=== PATIENT | male | born 1970 | race Caucasian/White ===

== ENCOUNTER 2018-12-23 14:46 | Observation (INO) | payer OTHER, BC ==
[~2018-12-23] VITALS: Ht 185.4 cm; Wt 151.0 kg
--- NOTE | 2018-12-23 15:44 | STROKE ---
Date/Time of Note Date/Time of Note DATE: 12/23/18 TIME: 15:43 Patient Information General Patient location: emergency Arrival Date Age 48 Gender male Weight 151 kg POC Glucose Glucose Result Bedside Glucose - 72 Hours Test 12/23/18 14:57 Bedside Glucose 220 mg/dL (70-220) Vital Signs Vital Signs Vital Signs Date Temp Pulse Resp B/P (MAP) Pulse Ox O2 O2 Flow FiO2 Time Delivery Rate 12/23/18 111 22 170/110 98 Room Air 15:25 (130) 12/23/18 98.6 14:53 Patient History Current Medications Allergies: Coded Allergies: marijuana (Verified Allergy, Severe, 12/23/18) azithromycin (Verified Allergy, Intermediate, 12/23/18) History & Physical History of Present Illness 48 M PMH DM, obesity, SHWETA LKW 0800 PST with right face numbness and right hand weakness as well as some blurred vision. No focal deficits on examination other than right face numbness. Patient reports some right eye vision abnormality and abnormal sensation around the upper right face. No tearing or redness of right eye. No nausea/vomiting. NIH Stroke Scale NIH Stroke Scale [id number] Total Score: [id number] Date/Time Recorded DATE: 12/23/18 TIME: 15:43 Submitted By Gorge Zepeda t-PA Imaging Review Date/Time Imaging Reviewed DATE: 12/23/18 TIME: 15:43 t-PA Administration Weight 151 kg Recommedation submitted by Gorge Zepeda Recommendations Recommendation 48 M with right headache focused in retroorbital region, vision blurring. Differential includes paroxysmal hemicrania, complex migraine, strokeother. Not tPA candidate as not in tPA window and NIHSS 0. No LVO suspected. - MRI/A Head w/ w/o contrast would be next step in work-up - Further plan per local Neurology team based on MRI results GORGE ZEPEDA MD Dec 23, 2018 15:44
[2018-12-23] MEDS ORDERED: IOHEXOL 100 ML ONE (16:16)
[2018-12-23] MEDS ORDERED: SOD CHLORIDE 0.9% 100 ML ONE (16:16)
[2018-12-23] MEDS ORDERED: ACETAMINOPHEN 325 MG TAB PO PRN (16:30)
[2018-12-23] MEDS ORDERED: ONDANSETRON 4 MG INJ IV PRN ×2 (16:30→18:00)
--- NOTE | 2018-12-23 16:53 | ERD ---
ER Documentation Chief Complaint Chief Complaint R facial tingling/numbness X 3 hrs, Hx HTN, DM HPI This is a 48-year-old male with a known history of sleep apnea, hypertension, insulin-dependent diabetes mellitus who presents to the emergency department complaining of right facial tingling and numbness. He stated this occurred 3 hours prior to arrival. He had a unilateral right-sided headache but stated this was not the worst headache of his life. He has not had any fever shaking or chills. He denies any neck pain. He also complained of blurry vision of his right eye. He said he had difficulty closing his left eye. He states his symptoms have not improved nor have they worsened. 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 He denies any chest pain. No shortness of breath at rest or exertion. ROS All systems reviewed and are negative except as per history of present illness. Allergies Allergies: Coded Allergies: marijuana (Verified Allergy, Severe, 12/23/18) azithromycin (Verified Allergy, Intermediate, 12/23/18) PMhx/Soc Medical and Surgical Hx: pt denies Surgical Hx History of Surgery: No Anesthesia Reaction: No Hx Neurological Disorder: No Hx Respiratory Disorders: No Hx Cardiac Disorders: Yes (HTN) Hx Psychiatric Problems: No Hx Miscellaneous Medical Probl: Yes (SHWETA, DM, HLD, Gout) Hx Alcohol Use: No Hx Substance Use: No Hx Tobacco Use: No Smoking Status: Former smoker Physical Exam Vitals Vital Signs Date Temp Pulse Resp B/P (MAP) Pulse Ox O2 O2 Flow FiO2 Time Delivery Rate 12/23/18 98.2 88 18 146/98 98 Room Air 16:41 (114) 12/23/18 111 22 170/110 98 Room Air 15:25 (130) 12/23/18 98.6 108 18 185/117 100 14:53 (139) Physical Exam Constitutional:Well-developed. Well-nourished. HEENT:Normocephalic. Atraumatic.Pupils were equal round reactive to light. Moist mucous membranes.No tonsillar exudates. Neck: No nuchal rigidity. No lymphadenopathy. No posterior cervical spine tender ness or step-offs. Respiratory: Not using accessory muscles of respiration.Lungs were clear to auscultation bilaterally. No rhonchi. No rales. No wheezing. Cardiovascular: Regular rate regular rhythm.No murmurs. No rubs were appreciated.S1, S2 normal. Distal pulses are palpable 2+ bilaterally. GI: Abdomen was soft. Nontender. Non Distended. No pulsatile abdominal masses or bruits. No rebound. No guarding. Bowel sounds were present and normal. Muscle skeletal: Full range of motion of both the upper and lower extremities bilaterally.Normal muscle tone.No assymetrical calf tenderness or swelling. Skin: No petechia, no purpura. No lesions on the palms or the soles of the feet. No maculopapular rash. NEURO: Patient was alert, awake, orientated x3.No pronator drift. Romberg sign negative. NIH stroke scale 0, gait observed and normal with no ataxia.Speech had regular rate and rhythm. Decreased sensation to sharp and dull on the right cheek and forehead compared to the left. No facial droop. No flattened nasolabial fold. Result Diagram: 12/23/18 1520 12/23/18 1520 Results 24 hrs Laboratory Tests Test 12/23/18 14:57 12/23/18 15:20 Bedside Glucose 220 mg/dL White Blood Count 5.7 10^3/ul Red Blood Count 5.23 10^6/ul Hemoglobin 15.5 g/dl Hematocrit 45.9 % Mean Corpuscular Volume 87.8 fl Mean Corpuscular Hemoglobin 29.6 pg Mean Corpuscular Hemoglobin Concent 33.8 g/dl Red Cell Distribution Width 11.9 % Platelet Count 246 10^3/UL Mean Platelet Volume 10.8 fl Immature Granulocytes % 0.300 % Neutrophils % 59.9 % Lymphocytes % 27.1 % Monocytes % 7.3 % Eosinophils % 4.9 % Basophils % 0.5 % Nucleated Red Blood Cells % 0.0 /100WBC Immature Granulocytes # 0.020 10^3/ul Neutrophils # 3.4 10^3/ul Lymphocytes # 1.6 10^3/ul Monocytes # 0.4 10^3/ul Eosinophils # 0.3 10^3/ul Basophils # 0.0 10^3/ul Nucleated Red Blood Cells # 0.0 10^3/ul Prothrombin Time 12.5 Sec Prothrombin Time Ratio 1.0 INR International Normalized Ratio 0.92 Activated Partial Thromboplast Time 21.8 Sec Sodium Level 141 mmol/L Potassium Level 4.1 mmol/L Chloride Level 103 mmol/L Carbon Dioxide Level 25 mmol/L Anion Gap 13 Blood Urea Nitrogen 17 mg/dl Creatinine 0.74 mg/dl Est Glomerular Filtrat Rate mL/min > 60 mL/min Glucose Level 206 mg/dl Hemoglobin A1c 10.0 % Calcium Level 10.1 mg/dl Total Bilirubin 0.2 mg/dl Direct Bilirubin 0.00 mg/dl Indirect Bilirubin 0.2 mg/dl Aspartate Amino Transf (AST/SGOT) 28 IU/L Alanine Aminotransferase (ALT/SGPT) 29 IU/L Alkaline Phosphatase 80 IU/L Creatine Kinase 49 IU/L Creatine Kinase Index 0.9 Creatinine Kinase MB (Mass) 0.44 ng/ml Troponin I < 0.012 ng/ml Total Protein 7.4 g/dl Albumin 4.3 g/dl Globulin 3.10 g/dl Albumin/Globulin Ratio 1.38 Triglycerides Level 397 mg/dl Cholesterol Level 198 mg/dl LDL Cholesterol, Calculated 84 mg/dl HDL Cholesterol 35 mg/dl Cholesterol/HDL Ratio 5.6 RATIO Current Medications Medications Dose Sig/Yuly Start Time Status Last (Trade) Ordered Route PRN Stop Time Admin Dose Reason Admin IV Flush 10 ml STK-MED 12/23/18 DC (NS 10 ml) ONCE .ROUTE 16:16 12/23/18 16:17 Sodium 100 ml @ ud STK-MED 12/23/18 DC Chloride ONCE .ROUTE 16:16 12/23/18 16:17 Iohexol 100 ml @ ud STK-MED 12/23/18 DC ONCE .ROUTE 16:16 12/23/18 16:17 Ondansetron 4 mg ER BRIDGE 12/23/18 HCl (Zofran PRN IV 16:30 12/24/18 Inj) NAUSEA/VOMITI 16:29 NG 650 mg ER BRIDGE 12/23/18 Acetaminophen PRN PO 16:30 12/24/18 (Tylenol .MILD PAIN 16:29 Tab) 1-3 OR TEMP Procedures/MDM This is a 48-year-old male that presented to the emergency department with strokelike symptoms. Code stroke was immediately called after I evaluated the patient. The patient placed on monitor car operator continuous pulse oximetry and IV access was established by nursing staff. 12 Lead EKG tracing ordered and reviewed by myself showed: Normal sinus rhythm of 98 bpm and no arrhythmia. AR interval normal. QRS duration normal. No ST segment elevation No ST segment depression. No changes consistent with acute ischemia. CT scan of the head was ordered and reviewed by myself the radiologist. I spoke with Dr. Cowart the radiologist to indicate there is no intracerebral hemorrhage mass-effect or midline shift. Dr. Santillan was the telemetry neurologist who saw the patient and after his evaluation did not feel the patient was a TPA candidate. He did suggest an MRI of the brain. A CTA of the head and neck was performed and reviewed by the radiologist. Did not appear to be any signs of an acute ischemic cerebrovascular accident but the patient will be admitted to the hospitalist on day to undergo an MRI and further evaluation. He was given aspirin. Departure Diagnosis: Primary Impression: Right facial numbness Condition: Serious TIFFANY CORREA MD Dec 23, 2018 16:53
[2018-12-23] MEDS ORDERED: ASPIRIN 81 MG TAB PO ONE (17:00)
[2018-12-23 17:34] VITALS: Ht 185.4 cm; Wt 151.0 kg
[2018-12-23 17:45] VITALS: BP 155/91; PULSE 86; RESP 20
[2018-12-23 17:57] VITALS: PULSE 90
[2018-12-23] MEDS ORDERED: NACL 0.9% 3 ML SYG IV SCH (18:00)
[2018-12-23] MEDS ORDERED: HYDROCODONE/APAP (5/325) TAB PO PRN (18:00)
[2018-12-23] MEDS ORDERED: ZOLPIDEM 5 MG TAB PO PRN (18:00)
[2018-12-23] MEDS ORDERED: morphine 2 MG INJ IV PRN (18:00)
[2018-12-23] MEDS ORDERED: DOCUSATE SODIUM 100 MG CAP PO PRN (18:00)
[2018-12-23] MEDS ORDERED: DEXTROSE 50% 50 ML SYRINGE IV PRN ×2 (19:30)
[2018-12-23] MEDS ORDERED: GLUCOSE GEL 15 GRAM TUBE BUCCAL PRN (19:30)
[2018-12-23] MEDS ORDERED: GLUCOSE GEL 15 GRAM TUBE PO PRN ×2 (19:30)
[2018-12-23] MEDS ORDERED: GLUCAGON 1 MG INJ IM PRN (19:30)
--- NOTE | 2018-12-23 19:32 | HP ---
Date/Time of Note Date/Time of Note DATE: 12/23/18 TIME: 19:20 Assessment/Plan VTE Prophylaxis Pharmacological prophylaxis: LMWH Lines/Catheters IV [facility]from [facility] Saline Lock Urinary Cath still in place: No Assessment/Plan Hospital Course 1. Right facial paresthesia with blurry vision in the right eye as well as diff iculty in closing the eye CT brain and CTA brain and neck showed no significant findings Patient has no evidence of ptosis or cranial nerve III palsy, no nystagmus noted Follow-up on MRI brain Neurology consultation with Dr. Taylor obtained Aspirin and statin started 2. 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 Hypertension Home medicine not known but start lisinopril 4. Dyslipidemia Statin 5. Morbid obesity Lifestyle changes to be advised Prophylaxis: Lovenox Result Diagram: 12/23/18 1520 12/23/18 1520 Results 24hrs Laboratory Tests Test 12/23/18 14:57 12/23/18 15:20 Bedside Glucose 220 White Blood Count 5.7 Red Blood Count 5.23 Hemoglobin 15.5 Hematocrit 45.9 Mean Corpuscular Volume 87.8 Mean Corpuscular Hemoglobin 29.6 Mean Corpuscular Hemoglobin Concent 33.8 Red Cell Distribution Width 11.9 Platelet Count 246 Mean Platelet Volume 10.8 H Immature Granulocytes % 0.300 Neutrophils % 59.9 Lymphocytes % 27.1 Monocytes % 7.3 Eosinophils % 4.9 Basophils % 0.5 Nucleated Red Blood Cells % 0.0 Immature Granulocytes # 0.020 Neutrophils # 3.4 Lymphocytes # 1.6 Monocytes # 0.4 Eosinophils # 0.3 Basophils # 0.0 Nucleated Red Blood Cells # 0.0 Prothrombin Time 12.5 Prothrombin Time Ratio 1.0 INR International Normalized Ratio 0.92 Activated Partial Thromboplast Time 21.8 L Sodium Level 141 Potassium Level 4.1 Chloride Level 103 Carbon Dioxide Level 25 Anion Gap 13 Blood Urea Nitrogen 17 Creatinine 0.74 Est Glomerular Filtrat Rate mL/min > 60 Glucose Level 206 Hemoglobin A1c 10.0 H Calcium Level 10.1 Total Bilirubin 0.2 Direct Bilirubin 0.00 Indirect Bilirubin 0.2 Aspartate Amino Transf (AST/SGOT) 28 Alanine Aminotransferase (ALT/SGPT) 29 Alkaline Phosphatase 80 Creatine Kinase 49 Creatine Kinase Index 0.9 Creatinine Kinase MB (Mass) 0.44 Troponin I < 0.012 Total Protein 7.4 Albumin 4.3 Globulin 3.10 Albumin/Globulin Ratio 1.38 Triglycerides Level 397 H Cholesterol Level 198 LDL Cholesterol, Calculated 84 HDL Cholesterol 35 Cholesterol/HDL Ratio 5.6 HPI/ROS Admit Date/Time Admit Date/Time Dec 23, 2018 at 16:28 Hx of Present Illness Patient is a 48-year-old male with history of super morbid obesity with sleep apnea, hypertension, diabetes, dyslipidemia. Patient presents with several days of right facial tingling and numbness with difficulty closing his right eye and does report blurry vision in that eye. Patient denies any prior such symptoms, patient denies any double vision or any visual field defects. Patient denies worsening of the symptoms over the past several days. Patient denies any focal weakness, patient denies any nausea, vomiting, fever or chills. Patient denies any significant headache. ROS Constitutional: no complaints, improved Eyes: no complaints ENT: no complaints Respiratory: no complaints Cardiovascular: no complaints Gastrointestinal: no complaints Genitourinary: no complaints Musculoskeletal: no complaints Skin: no complaints Neurologic: other (Numbness and tingling in the right face) Endocrine: no complaints Lymphatic: no complaints Psychological: no complaints, nl mood/affect Immunologic: no complaints PMH/Family/Social Past Medical History As per [facility] Medications Current Medications IV Flush (NS 3 ml) 3 ml PER PROTOCOL IV ; Start 12/23/18 at 18:00 Ondansetron HCl (Zofran Inj) 4 mg Q6H PRN IV NAUSEA/VOMITING; Start 12/23/18 at 18:00 Acetaminophen (Tylenol Tab) 650 mg Q6H PRN PO .PAIN 1-3 OR TEMP; Start 12/23/18 at 18:00 Acetaminophen/ Hydrocodone Bitart ([place] (5/325)) 1 tab Q6H PRN PO .MOD PAIN 4- 6; Start 12/23/18 at 18:00 Morphine Sulfate (morphine) 2 mg Q4H PRN IV .SEVERE PAIN 7-10; Start 12/23/18 at 18:00 Docusate Sodium (Colace) 100 mg Q12H PRN PO .CONSTIPATION; Start 12/23/18 at 18:00 Zolpidem Tartrate (Ambien) 5 mg QHS PRN PO .INSOMNIA; Start 12/23/18 at 18:00 Enoxaparin Sodium (Lovenox) 40 mg DAILY SC ; Start 12/24/18 at 09:00 Insulin Aspart (Novolog Insulin Pen) NOVOLOG *MILD* ALGORITHM WITH MEALS BEDTIME SC ; Start 12/23/18 at 21:00 Miscellaneous Information 1 ea NOTE XX ; Start 12/23/18 at 19:30 Glucose (Glutose) 15 gm Q15M PRN PO DECREASED GLUCOSE; Start 12/23/18 at 19:30 Glucose (Glutose) 22.5 gm Q15M PRN PO DECREASED GLUCOSE; Start 12/23/18 at 19:30 Dextrose (D50w Syringe) 25 ml Q15M PRN IV DECREASED GLUCOSE; Start 12/23/18 at 19:30 Dextrose (D50w Syringe) 50 ml Q15M PRN IV DECREASED GLUCOSE; Start 12/23/18 at 19:30 Glucagon (Glucagen) 1 mg Q15M PRN IM DECREASED GLUCOSE; Start 12/23/18 at 19:30 Glucose (Glutose) 15 gm Q15M PRN BUCCAL DECREASED GLUCOSE; Start 12/23/18 at 19:30 Coded Allergies: marijuana (Verified Allergy, Severe, 12/23/18) azithromycin (Verified Allergy, Intermediate, 12/23/18) Past Surgical History Past Surgical Hx: no surgical history Family History Significant Family History: no pertinent family hx Social History Alcohol Use: rarely Smoking Status: Former smoker Drug Use: none Exam/Review of Systems Vital Signs Vitals Vital Signs Date Temp Pulse Resp B/P (MAP) Pulse Ox O2 O2 Flow FiO2 Time Delivery Rate 12/23/18 90 17:57 12/23/18 98.4 20 155/91 92 17:45 (112) 12/23/18 Room Air 16:41 Exam Constitutional: alert, oriented Respiratory: clear to auscultation Cardiovascular: regular rate and rhythm Gastrointestinal: soft; No distended Musculoskeletal: nl extremities to inspection Neurological: AUTOMATIC LOG CUT OFF SAWYER II-XII intact, nl mental status, nl strength; No focal weakness TIFFANIE WADE Dec 23, 2018 19:30
[2018-12-23 20:00] VITALS: BP 130/68; PULSE 102; PULSE 94; RESP 19
[2018-12-23] MEDS ORDERED: INSULIN ASPART [NOVOLOG] 3 ML PEN SC SCH (21:00)
[2018-12-23] MEDS: INSULIN ASPART [NOVOLOG] 3 ML PEN SC SCH (21:00)
[2018-12-23] MEDS: ATORVASTATIN 40 MG TAB PO SCH (21:04)
[2018-12-23] MEDS: ACETAMINOPHEN 325 MG TAB PO PRN (21:06)
[2018-12-23] MEDS: INSULIN GLARGINE [LANTus] (100 UNITS/ML) SYG SC SCH (21:29)
[2018-12-24] VITALS (11 sets, daily range): BP systolic 115–146; BP diastolic 67–90; PULSE 79–131; RESP 18–20
[2018-12-24] MEDS: ACCU-CHEK XX SCH (01:42)
[2018-12-24] MEDS: INSULIN ASPART [NOVOLOG] 3 ML PEN SC SCH ×7 (07:15→20:29)
[2018-12-24] MEDS: ASPIRIN (EC) 81 MG TAB PO SCH (08:26)
[2018-12-24] MEDS: LISINOPRIL 10 MG TAB PO SCH (08:27)
[2018-12-24] MEDS: ENOXAPARIN 40 MG/0.4 ML SYG SC SCH (08:31)
--- NOTE | 2018-12-24 13:25 | PN ---
Date/Time of Note Date/Time of Note DATE: 12/24/18 TIME: 13:23 Assessment/Plan VTE Prophylaxis Risk score (from Ns)>0 risk: 2 SCD applied (from Nsg): Yes Pharmacological prophylaxis: heparin Lines/Catheters IV Catheter Type (from Nrs): Peripheral IV Urinary Cath still in place: No Assessment/Plan Hospital Course 48 yo male with h/o obesity, DMII, hypertension presents with facial numbness on R and facial droop on L concerning for CVA - MRI pending - CT/CTA without acute pathology DMII: - Basal/bolus insulin HDL: - Statin Hypertension: - Controlled Dc following workup Result Diagram: 12/24/18 0525 12/24/18 0525 Results 24hrs Laboratory Tests Test 12/23/18 14:57 12/23/18 15:20 12/23/18 21:25 12/24/18 05:25 Bedside Glucose 220 178 White Blood Count 5.7 6.8 Red Blood Count 5.23 4.96 Hemoglobin 15.5 14.7 Hematocrit 45.9 44.7 Mean Corpuscular Volume 87.8 90.1 Mean Corpuscular 29.6 29.6 Hemoglobin Mean Corpuscular 33.8 32.9 Hemoglobin Concent Red Cell Distribution 11.9 12.2 Width Platelet Count 246 253 Mean Platelet Volume 10.8 H 11.6 H Immature Granulocytes % 0.300 0.300 Neutrophils % 59.9 60.4 Lymphocytes % 27.1 25.3 Monocytes % 7.3 8.6 Eosinophils % 4.9 4.8 Basophils % 0.5 0.6 Nucleated Red Blood 0.0 0.0 Cells % Immature Granulocytes # 0.020 0.020 Neutrophils # 3.4 4.1 Lymphocytes # 1.6 1.7 Monocytes # 0.4 0.6 Eosinophils # 0.3 0.3 Basophils # 0.0 0.0 Nucleated Red Blood 0.0 0.0 Cells # Prothrombin Time 12.5 Prothrombin Time Ratio 1.0 INR International 0.92 Normalized Ratio Activated 21.8 L Partial Thromboplast Time Sodium Level 141 142 Potassium Level 4.1 4.0 Chloride Level 103 101 Carbon Dioxide Level 25 27 Anion Gap 13 14 H Blood Urea Nitrogen 17 19 Creatinine 0.74 0.93 Est Glomerular Filtrat > 60 > 60 Rate mL/min Glucose Level 206 167 Hemoglobin A1c 10.0 H 10.1 H Calcium Level 10.1 9.5 Total Bilirubin 0.2 Direct Bilirubin 0.00 Indirect Bilirubin 0.2 Aspartate Amino 28 Transf (AST/SGOT) Alanine 29 Aminotransferase (ALT/SG PT) Alkaline Phosphatase 80 Creatine Kinase 49 Creatine Kinase Index 0.9 Creatinine Kinase MB 0.44 (Mass) Troponin I < 0.012 Total Protein 7.4 Albumin 4.3 Globulin 3.10 Albumin/Globulin Ratio 1.38 Triglycerides Level 397 H 366 H Cholesterol Level 198 188 LDL Cholesterol, 84 85 Calculated HDL Cholesterol 35 30 Cholesterol/HDL Ratio 5.6 6.2 Phosphorus Level 5.1 H Magnesium Level 2.1 Test 12/24/18 07:11 12/24/18 11:38 Bedside Glucose 194 157 Subjective 24 Hr Interval Summary Free Text/Dictation Continued numbness of R face L facial droop, forehead paralysis, can't close eye on L 5/5 strength in b/l UEs and b/l LEs RRR CTAB Obese Soft nt nd Exam/Review of Systems Exam Vitals Vital Signs Date Temp Pulse Resp B/P (MAP) Pulse Ox O2 O2 Flow FiO2 Time Delivery Rate 12/24/18 86 12:01 12/24/18 99.3 18 120/77 93 Room Air 11:28 (91) Intake and Output 12/23/18 12/23/18 12/24/18 1515:00 23:00 07:00 IntakeIntake Total 500 ml BalanceBalance 500 ml Results Results 24hrs Laboratory Tests Test 12/23/18 14:57 12/23/18 15:20 12/23/18 21:25 12/24/18 05:25 Bedside Glucose 220 178 White Blood Count 5.7 6.8 Red Blood Count 5.23 4.96 Hemoglobin 15.5 14.7 Hematocrit 45.9 44.7 Mean Corpuscular Volume 87.8 90.1 Mean Corpuscular 29.6 29.6 Hemoglobin Mean Corpuscular 33.8 32.9 Hemoglobin Concent Red Cell Distribution 11.9 12.2 Width Platelet Count 246 253 Mean Platelet Volume 10.8 H 11.6 H Immature Granulocytes % 0.300 0.300 Neutrophils % 59.9 60.4 Lymphocytes % 27.1 25.3 Monocytes % 7.3 8.6 Eosinophils % 4.9 4.8 Basophils % 0.5 0.6 Nucleated Red Blood 0.0 0.0 Cells % Immature Granulocytes # 0.020 0.020 Neutrophils # 3.4 4.1 Lymphocytes # 1.6 1.7 Monocytes # 0.4 0.6 Eosinophils # 0.3 0.3 Basophils # 0.0 0.0 Nucleated Red Blood 0.0 0.0 Cells # Prothrombin Time 12.5 Prothrombin Time Ratio 1.0 INR International 0.92 Normalized Ratio Activated 21.8 L Partial Thromboplast Time Sodium Level 141 142 Potassium Level 4.1 4.0 Chloride Level 103 101 Carbon Dioxide Level 25 27 Anion Gap 13 14 H Blood Urea Nitrogen 17 19 Creatinine 0.74 0.93 Est Glomerular Filtrat > 60 > 60 Rate mL/min Glucose Level 206 167 Hemoglobin A1c 10.0 H 10.1 H Calcium Level 10.1 9.5 Total Bilirubin 0.2 Direct Bilirubin 0.00 Indirect Bilirubin 0.2 Aspartate Amino 28 Transf (AST/SGOT) Alanine 29 Aminotransferase (ALT/SG PT) Alkaline Phosphatase 80 Creatine Kinase 49 Creatine Kinase Index 0.9 Creatinine Kinase MB 0.44 (Mass) Troponin I < 0.012 Total Protein 7.4 Albumin 4.3 Globulin 3.10 Albumin/Globulin Ratio 1.38 Triglycerides Level 397 H 366 H Cholesterol Level 198 188 LDL Cholesterol, 84 85 Calculated HDL Cholesterol 35 30 Cholesterol/HDL Ratio 5.6 6.2 Phosphorus Level 5.1 H Magnesium Level 2.1 Test 12/24/18 07:11 12/24/18 11:38 Bedside Glucose 194 157 Medications Medication Current Medications IV Flush (NS 3 ml) 3 ml PER PROTOCOL IV ; Start 12/23/18 at 18:00 Ondansetron HCl (Zofran Inj) 4 mg Q6H PRN IV NAUSEA/VOMITING; Start 12/23/18 at 18:00 Acetaminophen (Tylenol Tab) 650 mg Q6H PRN PO .PAIN 1-3 OR TEMP Last administered on 12/23/18at 21:06; Admin Dose 650 MG; Start 12/23/18 at 18:00 Acetaminophen/ Hydrocodone Bitart ([place] (5/325)) 1 tab Q6H PRN PO .MOD PAIN 4- 6; Start 12/23/18 at 18:00 Morphine Sulfate (morphine) 2 mg Q4H PRN IV .SEVERE PAIN 7-10; Start 12/23/18 at 18:00 Docusate Sodium (Colace) 100 mg Q12H PRN PO .CONSTIPATION; Start 12/23/18 at 18:00 Zolpidem Tartrate (Ambien) 5 mg QHS PRN PO .INSOMNIA; Start 12/23/18 at 18:00 Enoxaparin Sodium (Lovenox) 40 mg DAILY SC Last administered on 12/24/18 08:31; Admin Dose 40 MG; Start 12/24/18 at 09:00 Insulin Aspart (Novolog Insulin Pen) NOVOLOG *MILD* ALGORITHM WITH MEALS BEDTIME SC Last administered on 12/24/18 11:49; Admin Dose 1 UNIT; Start 12/23/18 at 21:00 Miscellaneous Information 1 ea NOTE XX ; Start 12/23/18 at 19:30 Glucose (Glutose) 15 gm Q15M PRN PO DECREASED GLUCOSE; Start 12/23/18 at 19:30 Glucose (Glutose) 22.5 gm Q15M PRN PO DECREASED GLUCOSE; Start 12/23/18 at 19:30 Dextrose (D50w Syringe) 25 ml Q15M PRN IV DECREASED GLUCOSE; Start 12/23/18 at 19:30 Dextrose (D50w Syringe) 50 ml Q15M PRN IV DECREASED GLUCOSE; Start 12/23/18 at 19:30 Glucagon (Glucagen) 1 mg Q15M PRN IM DECREASED GLUCOSE; Start 12/23/18 at 19:30 Glucose (Glutose) 15 gm Q15M PRN BUCCAL DECREASED GLUCOSE; Start 12/23/18 at 19:30 Diagnostic Test (Pha) (Accu-Chek) 1 ea 02 XX ; Start 12/24/18 at 02:00 Insulin Glargine (Lantus) 23 units DAILY@2000 SC Last administered on 12/23/18 21:29; Admin Dose 23 UNITS; Start 12/23/18 at 20:30 Insulin Aspart (Novolog Insulin Pen) 8 unit WITH MEALS SC Last administered on 12/24/18 11:49; Admin Dose 8 UNIT; Start 12/24/18 at 08:00 Lisinopril (Zestril) 10 mg DAILY PO Last administered on 12/24/18 08:27; Admin Dose 10 MG; Start 12/24/18 at 09:00 Aspirin (Halfprin) 81 mg DAILY PO Last administered on 12/24/18 08:26; Admin Dose 81 MG; Start 12/24/18 at 09:00 Atorvastatin Calcium (Lipitor) 40 mg HS PO Last administered on 12/23/18at 21:04; Admin Dose 40 MG; Start 12/23/18 at 21:00 AMISHA BAUMANN MD Dec 24, 2018 13:25
--- NOTE | 2018-12-24 14:12 | RADRPT ---
Echocardiogram Report Patient Name: ANCA LAPatient ID: [id number] : 1970 (48y 12m)Study Date: 12/24/2018 7:09:21 AM Gender: MAccession #: [id number] Tech: Franc Powers SHELDON Location: [facility] [place] Ref.Physician: TIFFANIE WADE Height(Cm): BSA: Weight(Kg): Quality: AdequateAccount #: Procedures: Echocardiographic Report: Transthoracic echocardiogram with complete 2D, M-Mode, and doppler examination. Indications: Atrial Fibrillation. Measurements: 2D/M Mode Doppler Measurement Value Normal Range Measurement Value Normal Range LVIDd 2D 5.1 [ 4.2 - 5.8 ] cm AV Peak Fran 1.2 [ 100.0 - 170.0 ] cm/sec LVIDs 2D 3.2 [ 2.5 - 4.0 ] cm AV Peak PG 6.0 [ 2.0 - 9.0 ] mmHg LVPWd 2D 1.2 [ 0.6 - 1.0 ] cm LVOT Peak Fran 1.0 [ 70.0 - 110.0 ] cm/sec IVSd 2D 1.4 [ 0.6 - 1.0 ] cm LVOT Peak PG 4.0 [ 2.0 - 6.0 ] mmHg AoR Diam 2D 3.5 [ 2.6 - 3.4 ] cm MV E Peak Fran 0.6 [ 60.0 - 130.0 ] cm/sec EDV 2D 122.0 [ 62.0 - 150.0 ] ml MV A Peak Fran 0.5 [ 100.0 - 120.0 ] cm/sec ESV 2D 39.7 [ 21.0 - 61.0 ] ml MV E/A 1.2 [ 0.8 - 1.5 ] ratio EF 2D 67.5 [ 52.0 - 72.0 ] percent MV Decel Time 180 [ 104 - 258 ] msec LA Dimen 2D 3.0 [ 3.0 - 4.0 ] cm Lat E` Fran 0.1 [ 10.0 - 15.0 ] cm/sec Lateral E/E` 6.4 [ 1.0 - 2.0 ] ratio MV E/A 1.2 [ 0.8 - 1.5 ] ratio TR Peak Fran 2.3 [ 100.0 - 280.0 ] cm/sec TR Peak PG 20.0 mmHg RVSP 23.0 [ 10.0 - 36.0 ] mmHg RA Pressure 3.0 mmHg Findings: Left Ventricle: Normal left ventricular cavity size. Moderate concentric left ventricular hypertrophy. Mild left ventricular systolic dysfunction. Ejection fraction is visually estimated at 40-45 %. Tissue Doppler/Mitral Doppler indices are within normal limits. Right Ventricle: Normal right ventricular size. Normal right ventricular systolic function. Left Atrium: The left atrium is normal in size. Right Atrium: The right atrium is normal in size. Mitral Valve: Normal appearance and function of the mitral valve with trace physiologic regurgitation. Aortic Valve: Normal appearance of the aortic valve. No significant aortic stenosis or insufficiency. Tricuspid Valve: Normal appearance and function of the tricuspid valve with trace physiologic regurgitation. Normal right ventricular systolic pressure. Estimated peak PA systolic pressure 23 mmHg. Pulmonic Valve: Normal pulmonic valve appearance. Pericardium: Normal pericardium with no significant pericardial effusion. Aorta: Normal aortic root. IVC: Normal size and normal respiratory collapse consistent with normal right atrial pressure. Conclusions: Normal left ventricular cavity size. Moderate concentric left ventricular hypertrophy. Mild left ventricular systolic dysfunction. Ejection fraction is visually estimated at 40-45 %. Tissue Doppler/Mitral Doppler indices are within normal limits. Normal appearance and function of the mitral valve with trace physiologic regurgitation. Normal appearance and function of the tricuspid valve with trace physiologic regurgitation. Normal right ventricular systolic pressure. Estimated peak PA systolic pressure 23 mmHg. Electronically Signed By: Aj Ibrahim 2018-12-24 14:11:33 PST
--- NOTE | 2018-12-24 14:25 | CONS ---
Assessment/Plan Assessment/Plan Hospital Course 48 yo obese M w/ Hx of DM2, HLD, and other comorbidities... who presents for evaluation of left face weakness and blurred vision. 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 Minor stroke is less likely... CT Head is normal. CTA H negative P: MRI brain for further characterization if body habitus allows asa/lipitor daily pending the above Add Valtrex 1000 mg bid, Prednisone 60mg...daily x 10 days...with protonix PT/OT/ST as necessary Other management per primary Will follow Consultation Date/Type/Reason Admit Date/Time Dec 23, 2018 at 16:28 Type of Consult Neurology Reason for Consultation L face weakness Requesting Provider: TIFFANIE WADE Date/Time of Note DATE: 12/24/18 TIME: 14:25 Hx of Present Illness Patient is a 48-year-old male with history of super morbid obesity with sleep apnea, hypertension, diabetes, dyslipidemia. Patient presents with several days of right facial tingling and numbness with difficulty closing his left eye and does report blurry vision in the right eye. Patient denies any prior such symptoms, patient denies any double vision or any visual field defects. Patient denies worsening of the symptoms over the past several days. Patient denies any focal weakness, patient denies any nausea, vomiting, fever or chills. Patient denies any significant headache. 12 PT ROS ow neg, except as noted in HPI Exam/Review of Systems Exam Vitals Vital Signs Date Temp Pulse Resp B/P (MAP) Pulse Ox O2 O2 Flow FiO2 Time Delivery Rate 12/24/18 86 12:01 12/24/18 99.3 18 120/77 93 Room Air 11:28 (91) Intake and Output 12/23/18 12/23/18 12/24/18 1515:00 23:00 07:00 IntakeIntake Total 500 ml BalanceBalance 500 ml Exam PE: Gen Appearance: No Apparent Distress HEENT: Normocephalic Cardiovascular: Regular rate Abdomen: Soft, obese Extremities: Dry NE: The patient was alert and oriented. Language was normal. Fund of knowledge was normal. Pupils were equal and reactive to light. There was no afferent pupillary defect. Visual gordon were normal. Funduscopic examination showed sharp disc margins and spontaneous venous pulsations. Extra-ocular movements were full. Ptosis was absent. There was no nystagmus. Facial sensation was normal. Face was asymmetric with weakness on the left. Hearing was intact. Palate movements were normal. Neck strength was normal. There was normal tongue bulk and speed of movement. Tone was normal. Muscle bulk was normal. I did not see fasciculations. Arms and legs were strong. Vibration sensation was normal. Temperature and pinprick sensation was normal. Rapid alternating movements were normal. There was no dysmetria. There was no intention tremor. Gait was deferred due to bedrest. Arm and leg reflexes were symmetric. Loera's sign was absent. Plantar responses were flexor. Results Result Diagram: 12/24/18 0525 12/24/18 0525 Results 24hrs Laboratory Tests Test 12/23/18 14:57 12/23/18 15:20 12/23/18 21:25 12/24/18 05:25 Bedside Glucose 220 178 White Blood Count 5.7 6.8 Red Blood Count 5.23 4.96 Hemoglobin 15.5 14.7 Hematocrit 45.9 44.7 Mean Corpuscular Volume 87.8 90.1 Mean Corpuscular 29.6 29.6 Hemoglobin Mean Corpuscular 33.8 32.9 Hemoglobin Concent Red Cell Distribution 11.9 12.2 Width Platelet Count 246 253 Mean Platelet Volume 10.8 H 11.6 H Immature Granulocytes % 0.300 0.300 Neutrophils % 59.9 60.4 Lymphocytes % 27.1 25.3 Monocytes % 7.3 8.6 Eosinophils % 4.9 4.8 Basophils % 0.5 0.6 Nucleated Red Blood 0.0 0.0 Cells % Immature Granulocytes # 0.020 0.020 Neutrophils # 3.4 4.1 Lymphocytes # 1.6 1.7 Monocytes # 0.4 0.6 Eosinophils # 0.3 0.3 Basophils # 0.0 0.0 Nucleated Red Blood 0.0 0.0 Cells # Prothrombin Time 12.5 Prothrombin Time Ratio 1.0 INR International 0.92 Normalized Ratio Activated 21.8 L Partial Thromboplast Time Sodium Level 141 142 Potassium Level 4.1 4.0 Chloride Level 103 101 Carbon Dioxide Level 25 27 Anion Gap 13 14 H Blood Urea Nitrogen 17 19 Creatinine 0.74 0.93 Est Glomerular Filtrat > 60 > 60 Rate mL/min Glucose Level 206 167 Hemoglobin A1c 10.0 H 10.1 H Calcium Level 10.1 9.5 Total Bilirubin 0.2 Direct Bilirubin 0.00 Indirect Bilirubin 0.2 Aspartate Amino 28 Transf (AST/SGOT) Alanine 29 Aminotransferase (ALT/SG PT) Alkaline Phosphatase 80 Creatine Kinase 49 Creatine Kinase Index 0.9 Creatinine Kinase MB 0.44 (Mass) Troponin I < 0.012 Total Protein 7.4 Albumin 4.3 Globulin 3.10 Albumin/Globulin Ratio 1.38 Triglycerides Level 397 H 366 H Cholesterol Level 198 188 LDL Cholesterol, 84 85 Calculated HDL Cholesterol 35 30 Cholesterol/HDL Ratio 5.6 6.2 Phosphorus Level 5.1 H Magnesium Level 2.1 Test 12/24/18 07:11 12/24/18 11:38 Bedside Glucose 194 157 Medications Medication Current Medications IV Flush (NS 3 ml) 3 ml PER PROTOCOL IV ; Start 12/23/18 at 18:00 Ondansetron HCl (Zofran Inj) 4 mg Q6H PRN IV NAUSEA/VOMITING; Start 12/23/18 at 18:00 Acetaminophen (Tylenol Tab) 650 mg Q6H PRN PO .PAIN 1-3 OR TEMP Last administered on 12/23/18at 21:06; Admin Dose 650 MG; Start 12/23/18 at 18:00 Acetaminophen/ Hydrocodone Bitart ([place] (5/325)) 1 tab Q6H PRN PO .MOD PAIN 4- 6; Start 12/23/18 at 18:00 Morphine Sulfate (morphine) 2 mg Q4H PRN IV .SEVERE PAIN 7-10; Start 12/23/18 at 18:00 Docusate Sodium (Colace) 100 mg Q12H PRN PO .CONSTIPATION; Start 12/23/18 at 18:00 Zolpidem Tartrate (Ambien) 5 mg QHS PRN PO .INSOMNIA; Start 12/23/18 at 18:00 Enoxaparin Sodium (Lovenox) 40 mg DAILY SC Last administered on 12/24/18at 08:31; Admin Dose 40 MG; Start 12/24/18 at 09:00 Insulin Aspart (Novolog Insulin Pen) NOVOLOG *MILD* ALGORITHM WITH MEALS BEDTIME SC Last administered on 12/24/18at 11:49; Admin Dose 1 UNIT; Start 12/23/18 at 21:00 Miscellaneous Information 1 ea NOTE XX ; Start 12/23/18 at 19:30 Glucose (Glutose) 15 gm Q15M PRN PO DECREASED GLUCOSE; Start 12/23/18 at 19:30 Glucose (Glutose) 22.5 gm Q15M PRN PO DECREASED GLUCOSE; Start 12/23/18 at 19:30 Dextrose (D50w Syringe) 25 ml Q15M PRN IV DECREASED GLUCOSE; Start 12/23/18 at 19:30 Dextrose (D50w Syringe) 50 ml Q15M PRN IV DECREASED GLUCOSE; Start 12/23/18 at 19:30 Glucagon (Glucagen) 1 mg Q15M PRN IM DECREASED GLUCOSE; Start 12/23/18 at 19:30 Glucose (Glutose) 15 gm Q15M PRN BUCCAL DECREASED GLUCOSE; Start 12/23/18 at 19:30 Diagnostic Test (Pha) (Accu-Chek) 1 ea 02 XX ; Start 12/24/18 at 02:00 Insulin Glargine (Lantus) 23 units DAILY@2000 SC Last administered on 12/23/18at 21:29; Admin Dose 23 UNITS; Start 12/23/18 at 20:30 Insulin Aspart (Novolog Insulin Pen) 8 unit WITH MEALS SC Last administered on 12/24/18 11:49; Admin Dose 8 UNIT; Start 12/24/18 at 08:00 Lisinopril (Zestril) 10 mg DAILY PO Last administered on 12/24/18 08:27; Admin Dose 10 MG; Start 12/24/18 at 09:00 Aspirin (Halfprin) 81 mg DAILY PO Last administered on 12/24/18 08:26; Admin Dose 81 MG; Start 12/24/18 at 09:00 Atorvastatin Calcium (Lipitor) 40 mg HS PO Last administered on 12/23/18at 21:04; Admin Dose 40 MG; Start 12/23/18 at 21:00 Past Medical History reviewed Medications Current Medications IV Flush (NS 3 ml) 3 ml PER PROTOCOL IV ; Start 12/23/18 at 18:00 Ondansetron HCl (Zofran Inj) 4 mg Q6H PRN IV NAUSEA/VOMITING; Start 12/23/18 at 18:00 Acetaminophen (Tylenol Tab) 650 mg Q6H PRN PO .PAIN 1-3 OR TEMP Last administered on 12/23/18at 21:06; Admin Dose 650 MG; Start 12/23/18 at 18:00 Acetaminophen/ Hydrocodone Bitart ([place] (5/325)) 1 tab Q6H PRN PO .MOD PAIN 4- 6; Start 12/23/18 at 18:00 Morphine Sulfate (morphine) 2 mg Q4H PRN IV .SEVERE PAIN 7-10; Start 12/23/18 at 18:00 Docusate Sodium (Colace) 100 mg Q12H PRN PO .CONSTIPATION; Start 12/23/18 at 18:00 Zolpidem Tartrate (Ambien) 5 mg QHS PRN PO .INSOMNIA; Start 12/23/18 at 18:00 Enoxaparin Sodium (Lovenox) 40 mg DAILY SC Last administered on 12/24/18at 08:31; Admin Dose 40 MG; Start 12/24/18 at 09:00 Insulin Aspart (Novolog Insulin Pen) NOVOLOG *MILD* ALGORITHM WITH MEALS BEDTIME SC Last administered on 12/24/18at 11:49; Admin Dose 1 UNIT; Start 12/23/18 at 21:00 Miscellaneous Information 1 ea NOTE XX ; Start 12/23/18 at 19:30 Glucose (Glutose) 15 gm Q15M PRN PO DECREASED GLUCOSE; Start 12/23/18 at 19:30 Glucose (Glutose) 22.5 gm Q15M PRN PO DECREASED GLUCOSE; Start 12/23/18 at 19:30 Dextrose (D50w Syringe) 25 ml Q15M PRN IV DECREASED GLUCOSE; Start 12/23/18 at 19:30 Dextrose (D50w Syringe) 50 ml Q15M PRN IV DECREASED GLUCOSE; Start 12/23/18 at 19:30 Glucagon (Glucagen) 1 mg Q15M PRN IM DECREASED GLUCOSE; Start 12/23/18 at 19:30 Glucose (Glutose) 15 gm Q15M PRN BUCCAL DECREASED GLUCOSE; Start 12/23/18 at 19:30 Diagnostic Test (Pha) (Accu-Chek) 1 ea 02 XX ; Start 12/24/18 at 02:00 Insulin Glargine (Lantus) 23 units DAILY@2000 SC Last administered on 12/23/18at 21:29; Admin Dose 23 UNITS; Start 12/23/18 at 20:30 Insulin Aspart (Novolog Insulin Pen) 8 unit WITH MEALS SC Last administered on 3/4/19at 11:49; Admin Dose 8 UNIT; Start 12/24/18 at 08:00 Lisinopril (Zestril) 10 mg DAILY PO Last administered on 12/24/18 08:27; Admin Dose 10 MG; Start 12/24/18 at 09:00 Aspirin (Halfprin) 81 mg DAILY PO Last administered on 12/24/18 08:26; Admin Dose 81 MG; Start 12/24/18 at 09:00 Atorvastatin Calcium (Lipitor) 40 mg HS PO Last administered on 12/23/18at 21:04; Admin Dose 40 MG; Start 12/23/18 at 21:00 Allergies: Coded Allergies: marijuana (Verified Allergy, Severe, 12/23/18) azithromycin (Verified Allergy, Intermediate, 12/23/18) Past Surgical History Past Surgical Hx: no surgical history Social History Alcohol Use: rarely Smoking Status: Former smoker Drug Use: none NATALIE BLAKE NP Dec 24, 2018 14:25 VINCE HARRIS Dec 24, 2018 17:00
[2018-12-24] MEDS: ACETAMINOPHEN 325 MG TAB PO PRN (19:55)
[2018-12-24] MEDS: ATORVASTATIN 40 MG TAB PO SCH (20:23)
[2018-12-24] MEDS: INSULIN GLARGINE [LANTus] (100 UNITS/ML) SYG SC SCH (20:29)
[2018-12-24] MEDS: VALACYCLOVIR 500 MG TAB PO SCH (21:34)
[2018-12-25] VITALS (7 sets, daily range): BP systolic 140–160; BP diastolic 74–88; PULSE 76–102; RESP 18–20
[2018-12-25] MEDS: ACCU-CHEK XX SCH (02:24)
[2018-12-25] MEDS ORDERED: PANTOPRAZOLE (EC) 40 MG TAB PO SCH (06:00)
[2018-12-25] MEDS: INSULIN ASPART [NOVOLOG] 3 ML PEN SC SCH ×4 (08:27→12:14)
[2018-12-25] MEDS ORDERED: predniSONE 20 MG TAB PO SCH (09:00)
[2018-12-25] MEDS: ASPIRIN (EC) 81 MG TAB PO SCH (09:14)
[2018-12-25] MEDS: VALACYCLOVIR 500 MG TAB PO SCH (09:15)
[2018-12-25] MEDS: LISINOPRIL 10 MG TAB PO SCH (09:15)
[2018-12-25] MEDS: ENOXAPARIN 40 MG/0.4 ML SYG SC SCH (09:22)
[2018-12-25] MEDS ORDERED: PRED20TA PO (12:17)
[2018-12-25] MEDS ORDERED: LANT3I SC (12:17)
[2018-12-25] MEDS ORDERED: [UNRECOGNIZED DRUG - CODE] MC (12:17)
[2018-12-25] MEDS ORDERED: VALA500T PO (12:17)
[2018-12-25] MEDS ORDERED: MTF1000T PO (12:17)
--- NOTE | 2018-12-25 12:25 | PDOCDIS ---
Discharge Instructions DIAGNOSIS Discharge Diagnosis [place] palsy CONDITION [id number] Patient Condition: [id number] Stable FOLLOW UP/APPOINTMENTS Follow-up Plan Please limit the carbohydrates and sugar in your diet. Your diabetes is out of control and can only get worse. Closely monitor your blood sugars. They will be expected to rise for the next week while you are on prednisone. It is EXTREMELY important that you check in regularly with your diabetes doctor for this. You have been diagnosed with [place] Palsy and you will continue to have half faced paralysis for the coming weeks/months. You can make an appointment to see an ENT doctor for further care. I have prescribed you a week of prednisone and valacyclovir to take which make help. AMISHA BAUMANN MD Dec 25, 2018 12:25
--- NOTE | 2018-12-25 14:34 | DS ---
Date/Time of Note Date/Time of Note DATE: 12/25/18 TIME: 14:33 Discharge Summary Admission/Discharge Info Admit Date/Time Dec 23, 2018 at 16:28 Discharge Date/Time Discharge Diagnosis [place] palsy Patient Condition: Stable Hospital Course 48 yo male with h/o obesity, DMII, hypertension presents with facial numbness on R and facial droop on L concerning for CVA MRI was negative for stroke Neurology consulted, diagnosed bells palsy. He was prescribed prednisone and valtrex A1C was 10. Diabetic management was discussed. He was prescribed lantus and metformin at discharge and encouraged to follow up with his PMD Home Meds Active Scripts Syringe-Needle,Insulin,0.5 ml ([place] Insulin Syringe) 1 Each Disp.syrin, EACH MC, #1 5 Refills Prov:AMISHA BAUMANN MD 12/25/18 Insulin Glargine* (Lantus*) 100 Unit/Ml Soln, 25 UNIT SC QHS, #1 VIAL 1 Refill Prov:AMISHA BAUMANN MD 12/25/18 Metformin* (Glucophage*) 1,000 Mg Tablet, 1000 MG PO BID for 30 Days, #60 TAB Prov:AMISHA BAUMANN MD 12/25/18 Prednisone* (Prednisone*) 20 Mg Tab, 40 MG PO DAILY for 7 Days, #7 TAB Prov:AMISHA BAUMANN MD 12/25/18 Valacyclovir Hcl* (Valacyclovir Hcl*) 500 Mg Tablet, 1000 MG PO BID for 7 Days, #14 TAB Prov:AMISHA BAUMANN MD 12/25/18 Follow-up Plan Please limit the carbohydrates and sugar in your diet. Your diabetes is out of control and can only get worse. Closely monitor your blood sugars. They will be expected to rise for the next week while you are on prednisone. It is EXTREMELY important that you check in regularly with your diabetes doctor for this. You have been diagnosed with [place] Palsy and you will continue to have half faced paralysis for the coming weeks/months. You can make an appointment to see an ENT doctor for further care. I have prescribed you a week of prednisone and valacyclovir to take which make help. Primary Care Provider Not On Staff Doctor Pending Labs Laboratory Tests Test 12/24/18 17:00 12/24/18 20:22 12/25/18 02:20 12/25/18 07:59 Bedside 162 198 168 208 Glucose mg/dL (70-220) mg/dL (70-220) mg/dL (70-220) mg/dL (70-220) Test 12/25/18 12:03 Bedside 197 Glucose mg/dL (70-220) AMISHA BAUMANN MD Dec 25, 2018 14:34
--- NOTE | 2018-12-25 14:36 | CONS ---
Assessment/Plan Assessment/Plan Hospital Course 48 yo obese M w/ Hx of DM2, HLD, and other comorbidities... who presents for evaluation of left face weakness and blurred vision. 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 Minor stroke is less likely... CT Head is normal. CTA H negative MRI brain was normal.. P: Continue Valtrex 1000 mg bid, Prednisone 60mg...daily x 10 days...with protonix PT/OT/ST as necessary Other management per primary Neurologically cleared for d/c Consultation Date/Type/Reason Admit Date/Time Dec 23, 2018 at 16:28 Type of Consult Neurology Reason for Consultation face weakness, blurry vision Requesting Provider: TIFFANIE WADE Date/Time of Note DATE: 12/25/18 TIME: 14:36 24 HR Interval Summary Free Text/Dictation s/p MRI brain Exam Vital Signs Vitals Vital Signs Date Temp Pulse Resp B/P (MAP) Pulse Ox O2 O2 Flow FiO2 Time Delivery Rate 12/25/18 87 12:01 12/25/18 99.0 18 143/88 95 Room Air 11:40 (106) Intake and Output 12/24/18 12/24/18 12/25/18 1515:00 23:00 07:00 IntakeIntake Total 990 ml 300 ml BalanceBalance 990 ml 300 ml Exam PE: Gen Appearance: No Apparent Distress HEENT: Normocephalic Cardiovascular: Regular rate Abdomen: Soft, obese Extremities: Dry NE: The patient was alert and oriented. Language was normal. Fund of knowledge was normal. Pupils were equal and reactive to light. There was no afferent pupillary defect. Visual gordon were normal. Funduscopic examination showed sharp disc margins and spontaneous venous pulsations. Extra-ocular movements were full. Ptosis was absent. There was no nystagmus. Facial sensation was normal. Face was asymmetric with weakness on the left. Hearing was intact. Palate movements were normal. Neck strength was normal. There was normal tongue bulk and speed of movement. Tone was normal. Muscle bulk was normal. I did not see fasciculations. Arms and legs were strong. Vibration sensation was normal. Temperature and pinprick sensation was normal. Rapid alternating movements were normal. There was no dysmetria. There was no intention tremor. Gait was deferred due to bedrest. Arm and leg reflexes were symmetric. Loera's sign was absent. Plantar responses were flexor. NATALIE BLAKE NP Dec 25, 2018 14:36 VINCE HARRIS Dec 25, 2018 16:16
== END 2018-12-25 15:32 | disposition home or self-care (01) ==
LOC: E/R 14:46 → 6WM 16:28
PROVIDERS: ADMIT Internal Medicine; ATTEND Internal Medicine
DX: G51.0 Bell's palsy (principal); E66.01 Morbid (severe) obesity due to excess calories; Z68.41 Body mass index [BMI] 40.0-44.9, adult; G47.30 Sleep apnea, unspecified; I10 Essential (primary) hypertension; E11.65 Type 2 diabetes mellitus with hyperglycemia; Z79.4 Long term (current) use of insulin; G47.33 Obstructive sleep apnea (adult) (pediatric); E78.5 Hyperlipidemia, unspecified; M10.9 Gout, unspecified; Z87.891 Personal history of nicotine dependence
CPT/HCPCS: 36415; 70450; 70496; 70498; 70551; 71045; 80048; 80053; 80061; 82550; 82553; 82962; 83036; 83735; 84100; 84484; 85025; 85610; 85730; 92610; 93005; 93306; 97161; 99285; G0378; J1650; J1815; J7512; Q9967